=== PATIENT | male | born 1965 | race Caucasian/White ===

== ENCOUNTER → 2017-02-02 | Outpatient (CLI) | payer MEDICARE, OTHER ==
[~2017-02-02] MED LIST: ZESTRIL40 MG PO; ZOCOR 10MG10 MG PO
== END ==
LOC: COL.RAD 12:30
DX: M17.11 Unilateral primary osteoarthritis, right knee (principal); M23.221 Derangement of posterior horn of medial meniscus due to old tear or injury, right knee; M25.761 Osteophyte, right knee; M25.461 Effusion, right knee

== ENCOUNTER 2020-03-13 09:00 | Outpatient (RCR) | payer MEDICARE, OTHER | END 2020-06-11 | disposition home or self-care (01) | LOC: MKS.ESL.PT | DX: Z96.651 Presence of right artificial knee joint (principal) ==

== ENCOUNTER 2020-05-27 10:15 | Outpatient (RCR) | payer MEDICARE, OTHER | END 2020-08-12 | disposition home or self-care (01) | LOC: MKS.ESL.PT | DX: Z47.1 Aftercare following joint replacement surgery (principal); Z96.652 Presence of left artificial knee joint ==

== ENCOUNTER → 2020-08-24 | Outpatient (RCR) | payer MEDICARE, OTHER | END | disposition home or self-care (01) | LOC: MKS.ESL.PT | DX: Z96.652 Presence of left artificial knee joint (principal) ==

== ENCOUNTER 2020-11-23 09:30 | Outpatient (RCR) | payer MEDICARE, OTHER | END 2020-11-24 | disposition home or self-care (01) | LOC: MKS.ESL.PT | DX: Z01.818 Encounter for other preprocedural examination (principal) ==

== ENCOUNTER 2021-02-16 10:30 | Outpatient (RCR) | payer MEDICARE, OTHER | END 2021-02-23 | disposition home or self-care (01) | LOC: MKS.ESL.PT | DX: Z96.652 Presence of left artificial knee joint (principal) ==

== ENCOUNTER → 2021-02-25 11:16 | Outpatient (RCR) | payer MEDICARE, OTHER | END | disposition home or self-care (01) | LOC: MKS.ESL.PT 08-13 11:00 | DX: Z96.651 Presence of right artificial knee joint (principal) ==

== ENCOUNTER 2021-02-25 11:18 | Outpatient (RCR) | payer MEDICARE, OTHER | END 2021-02-25 11:19 | disposition home or self-care (01) | LOC: MKS.ESL.PT 11:18 | DX: Z96.651 Presence of right artificial knee joint (principal) ==

== ENCOUNTER 2021-03-11 11:00 | Outpatient (RCR) | payer SELFPAY | END 2021-03-14 | disposition home or self-care (01) | LOC: MKS.ESL.PT | DX: Z96.652 Presence of left artificial knee joint (principal) ==

== ENCOUNTER 2021-03-18 10:45 | Outpatient (RCR) | payer MEDICARE, OTHER | END 2021-05-26 | disposition home or self-care (01) | LOC: MKS.ESL.PT | DX: Z96.652 Presence of left artificial knee joint (principal) ==

== ENCOUNTER 2024-05-17 10:18 | Inpatient (IN) | payer MEDICARE, OTHER ==
[~2024-05-17] VITALS: Ht 167.6 cm; Wt 157.0 kg
[2024-05-17 13:00] VITALS: BP_SYST 107
[2024-05-17] MEDS ORDERED: TYLENOL 325MG325 MG PO (15:07)
[2024-05-17] MEDS ORDERED: ASPIRIN 32325 MG/TA1 PO (15:08)
[2024-05-17] MEDS ORDERED: EXCEDRIN1 TAB PO (15:09)
[2024-05-17] MEDS ORDERED: BANOPHEN MAXIMU1 CRE TOP (15:10)
[2024-05-17] MEDS ORDERED: VOLTAREN GEL 1%1 TU TP (15:10)
[2024-05-17] MEDS ORDERED: MIRALAX PA17 GM/Dose PO (15:11)
[2024-05-17] MEDS ORDERED: PROAIR RES117 MCG/Ac IH (15:13)
[2024-05-17] MEDS ORDERED: CYMBALTA 30MG30 MG PO (15:14)
[2024-05-17] MEDS ORDERED: NIGHT TIME SLEE25 MG PO (15:14)
[2024-05-17] MEDS ORDERED: NEURONTIN300 MG/CAP PO ×2 (15:16)
[2024-05-17] MEDS ORDERED: PRINIVIL40 MG PO (15:17)
[2024-05-17] MEDS ORDERED: GLUCOPHAGE XR750 MG PO (15:18)
[2024-05-17] MEDS ORDERED: CRESTOR20 MG PO (15:19)
[2024-05-17] MEDS ORDERED: EFFEXOR 75M75 MG/TAB PO (15:20)
[2024-05-17 15:26] VITALS: BP 107/72; PULSE 97; TEMP 98.1
[2024-05-17] MEDS ORDERED: Sennosides/Docusate 8.6-50 MG TAB PO PRN (15:30)
[2024-05-17] MEDS ORDERED: Polyethylene Glycol 3350 17 GM PDS PO PRN (15:30)
[2024-05-17] MEDS ORDERED: Acetaminophen 325 MG TAB PO PRN (15:30)
[2024-05-17] MEDS ORDERED: Docusate Sodium 100 MG CAP PO PRN (15:30)
[2024-05-17] MEDS ORDERED: Naloxone 0.4 MG/ML VIAL IV PRN (15:30)
[2024-05-17] MEDS ORDERED: Albuterol 0.083% Neb Soln 2.5 MG/3 ML UD IH PRN (15:45)
[2024-05-17] MEDS ORDERED: diphenhydrAMINE 50 MG CAP PO PRN (15:45)
[2024-05-17] MEDS ORDERED: Acetamin/Butalbital/Caffeine 325-50-40 MG TAB PO PRN (15:45)
[2024-05-17] MEDS ORDERED: diphenhydrAMINE 2%/Zinc Acetate 0.1% Cream 28.3 GM TUBE TP PRN (16:00)
[2024-05-17 16:57] VITALS: BP_SYST 107
--- NOTE | 2024-05-17 17:24 | NUR ---
HOSPITALIST CONSULT CALLED TO DR. SUAREZ.
[2024-05-17 18:25] VITALS: BP 130/78; PULSE 98; TEMP 98.4
[2024-05-17 19:00] VITALS: BP_SYST 130
--- NOTE | 2024-05-17 20:00 | NUR ---
PT AWAKE AND RESTING IN CHAIR. AMBULATED TO BED W/ SBA. SCHEDULED MEDS GIVEN PER eMAR. NOTED ABDOMINAL HERNIA, MIDLINE. PT DENIES PAIN OR DISCOMFORT. BED ALARM ON AND CALL LIGHT WITHIN REACH.
[2024-05-17] MEDS ORDERED: Atorvastatin 40 MG TAB PO SCH (21:00)
[2024-05-17] MEDS ORDERED: Rosuvastatin 20 MG **** subs to Atorvastatin 40 MG PO SCH (21:00)
[2024-05-17] MEDS ORDERED: Gabapentin 300 MG CAP PO SCH (21:00)
[2024-05-18 05:46] VITALS: BP 143/88; PULSE 68; TEMP 97.4
[2024-05-18 07:40] VITALS: BP_SYST 143
--- NOTE | 2024-05-18 07:45 | NUR ---
Patient called to be assisted to the restrom. Pt able to to stand up and use his cane to ambulate, assisted x 1. Alert and oriented, slow speech. States some pain in the right shoulder, lotion applied. Assessment completed, meds given. No further needs at this time. Call light within reach. Bed alarm on.
[2024-05-18] MEDS ORDERED: metFORMIN 850 MG TAB PO SCH (08:00)
[2024-05-18] MEDS ORDERED: DULoxetine 30 MG CAP PO SCH (09:00)
[2024-05-18] MEDS ORDERED: Aspirin Buffered 325 MG TAB PO SCH (09:00)
[2024-05-18] MEDS ORDERED: Gabapentin 300 MG CAP PO SCH (09:00)
--- NOTE | 2024-05-18 11:27 | NUR ---
Data: Patient accepted spiritual care visit offered during Thread Pulling Machine Attendant rounds. Patient is a . Patient is undergoing stroke IPR. Assessment: Patient has some difficulty with his words, but still needed to tell his story and feel heard. Plan of Care: Thread Pulling Machine Attendant provided supportive listening; affirmation of Patient's feelings; and a blessing. Thread Pulling Machine Attendant is also a Dawn which made some words of communication easier for him. Patient expressed his gratitude for the visit. Chaplains will remain available as needed/requested while Patient is admitted to this hospital.
--- NOTE | 2024-05-18 14:03 | NUR ---
CAKE WASHER met along with Brittany, met with pt and spouse Porsha bedside to complete initial consult and discuss discharge planning. Pt confirmed no DPOA and NOK decision maker is Porsha [phone]. Pt does not want to fill out DPAO paperowrk and is okay with making decision. Pt confirmed Srinath as PCP and they use [email or web address] or [facility] for pharmacy. Pt reports he has had about 4 falls over the last 3 months. None of them have resulted in injuries. Pt stated that most of the falls have occured when he is getting out of bed. Sometimes he walks too fast and will fall as well. He stated it "just happens". Pt uses a walking stick and a motorized wheelchair. He does not have grab bars in the shower and does not have a bench. Pt would like to have the bathroom remodeled since it is not disability friendly but they were quoted around $20k for the remodel and that is not something they can afford. Pt and were looking at "kit". CAKE WASHER educated pt and Porsha that kits are the most cost effective but there are different sizes of chairs which could potentially work if they looked outside of a kit. Family would follow up with different sizes of chairs that may not have been included in the kit. Pt stated that when he had knee surgery prior he used [facility] . Porsha is on board with HH but pt is not at thsi time. He would like to wait until closer to discharge to determine if he needs HH or not. Family said house is fine structurally, they just need a more accessible shower\\bathing situation. D/C: Home
[2024-05-18 17:05] VITALS: BP 145/65; PULSE 77; TEMP 98.4
[2024-05-18 18:53] VITALS: BP_SYST 145
--- NOTE | 2024-05-18 20:00 | NUR ---
PT AWAKE AND RESTING IN BED. SCHEDULED MEDS GIVEN PER eMAR. ABDOMINAL HERNIA VISIBLY PROTRUDING, MIDLINE. SMALL NODULE AND BRUISE ON LEFT SIDE OF ABDOMEN. BANDAGE AND STERI STRIPS COVERING LOOP RECORDER INCISION SITE. PRN TYLENOL GIVEN FOR RIGHT SHOULDER PAIN. PT AMBULATED TO TOILET X1 ASSIST W/ WALKER. NO FURTHER CONCERNS. BED IN LOWEST POSITION AND CALL LIGHT WITHIN REACH.
--- NOTE | 2024-05-19 02:30 | NUR ---
PT C/O PAIN IN RIGHT SHOULDER. PRN TYELNOL OFFERED AND GIVEN.
[2024-05-19 06:00] VITALS: BP 131/51; PULSE 66; TEMP 97.4
[2024-05-19 07:00] VITALS: BP_SYST 131
--- NOTE | 2024-05-19 08:40 | NUR ---
PATIENT SITTING IN RECLINER. ON ROOM AIR, REPORTS PAIN 4/10 TO RIGHT SHOULDER, MORNING MEDICATIONS GIVEN. PATIENT BREAKFAST WAS ORDERED. PATIENT DENIED ANY OTHER NEED AT THIS TIME. CALL LIGHT WITHIN REACH.
[2024-05-19 17:44] VITALS: BP 111/67; PULSE 82; TEMP 98.6
[2024-05-19 19:27] VITALS: BP_SYST 111
--- NOTE | 2024-05-19 22:30 | NUR ---
PT SITTING IN CHAIR. PT AMBULATED TO BED. NO COMPLAINTS AT THIS TIME. CALL LIGHT IS WITHIN REACH. PT IS A/OX4. DENIES ANY N/V AT THIS TIME. BED IS IN LOWEST POSITION WITH BED ALARM ON. ASSESSMENT COMPLETED EARLIER. MEDICATIONS ADMINISTERED PER EMAR.
[2024-05-20 05:48] VITALS: BP 111/66; PULSE 82; TEMP 97.4
[2024-05-20 07:00] VITALS: BP_SYST 111
--- NOTE | 2024-05-20 08:51 | NUR ---
PT UP TO RECLINER FOR BREAKFAST WITH SBAX1. PT DENIES PAIN OR NEEDS AT THIS TIME. AM MEDS GIVEN ORDERED. VSS. PT WORKING WITH THERAPY PER CARE PLAN.
--- NOTE | 2024-05-20 15:10 | NUR ---
Plunger Scoop Operator met with patient and his , Porsha to introduce herself and explain role on the rehab unit. MISHA also scheduled a family meeting for Monday at 1015. Patient and inquired about VA assistance with home renovations to make his bathroom more accessible. Patient goes to the [facility] for primary care so MISHA attempted to contact [facility] and left a message.
[2024-05-20 18:07] VITALS: BP 132/79; PULSE 75; TEMP 97.4
[2024-05-20 20:00] VITALS: BP_SYST 132
--- NOTE | 2024-05-21 00:45 | NUR ---
PATIENT RESTING SOUNDLY WITH CPAP IN PLACE. LAYING ON LT LATERAL SIDE, NO SIGNS OF DISTRESS.
[2024-05-21 06:00] VITALS: BP 133/70; PULSE 72; TEMP 97.4
[2024-05-21 07:00] VITALS: BP_SYST 133
--- NOTE | 2024-05-21 08:00 | NUR ---
PT A&OX4. WOKE PT UP TO EAT BREAKFAST AND GET READY BEFORE THERAPY. SITTING ON EDGE OF BED EATING BREAKFAST CURRENTLY. PT'S CPAP TAKEN OFF AND SHUT DOWN. VSS. SHIFT ASSESSMENT COMPLETE AND MEDICATIONS ADMINISTERED. PT IS UP WITH ASSIST X1, WALKER, AND GB. PT USES W/C FOR LONG DISTANCES. PT HAS NO C/O PAIN AT THIS TIME. NO FURTHER NEEDS AT THIS TIME. CALL LIGHT AND PERSONAL BELONGINGS WITHIN REACH.
--- NOTE | 2024-05-21 15:47 | NUR ---
Outdoor Adventure Instructor attempted to contact MISHA HUFF at the [facility] and left a message.
--- NOTE | 2024-05-21 15:52 | NUR ---
Account Consultant was contacted by MISHA Melendrez at the [facility] who advised she would contact patient's , Porsha tomorrow to discuss grants through the [facility] for home renovations.
[2024-05-21 17:55] VITALS: BP 142/84; PULSE 88; TEMP 97.8
[2024-05-21 18:45] VITALS: BP_SYST 142
--- NOTE | 2024-05-21 19:20 | NUR ---
Patient sitting on edge of bed. Assissted patient to bathroom and back to bed. Rates his pian at 5/10, prn tylenol given. Needs met. Assessment complete. Call light and personal items in reach. Bed in low position and bed alarm on.
[2024-05-22 05:25] VITALS: BP 107/60; PULSE 69; TEMP 97.7
[2024-05-22 07:00] VITALS: BP_SYST 107
--- NOTE | 2024-05-22 08:15 | NUR ---
Pt a&ox4. C/o slight aching pains in both shoulders. Voltaren gel applied. VSS. Up with SBA, walker, and gait belt. Shift assessment complete and medications administered. Pt currently in bed waiting for therapy. No further needs at this time. Call light within reach.
--- NOTE | 2024-05-22 14:26 | NUR ---
The Interdisciplinary team discussed making the patient Independent in his room during special Team Huddle. His current West Fall Score is low at 15 but his Tinetti score is moderate at 22. He is currently is using a walker for mobility or self care & demonstrates good safety. The team feels he is capable of being Modified Independent in his room at this time as he is aware of his deficits/limitations & cognitively able to problem solve his situations.--Farnaz Hoffman, PD
[2024-05-22 16:25] VITALS: BP 130/86; PULSE 87; TEMP 98.1
--- NOTE | 2024-05-22 16:38 | NUR ---
Hair Spring Cutter participated in patient's family meeting which included patient's , Porsha at bedside. AASHISH Osei Director opened the meeting followed by a medical update from Dr. Izquierdo. PT/OT/ST gave report on patient's progress and recommendations. SW discussed discharge date of Monday and patient is agreeable to this. Therapy is recommending a bariatric walker, which SW will order. SW also discussed Home Health services which patient and are agreeable to. After meeting, SW followed up to provide copy of team conference notes and Medicare.gov list of agencies to review and choose from. MISHA also contacted [facility] and confirmed they have bariatric walkers available.
[2024-05-22 18:50] VITALS: BP_SYST 130
--- NOTE | 2024-05-22 21:15 | NUR ---
Patient sitting in chair. Rates pain at 6/10, prn pain meds given. Needs met. Assessment complete. Call light and personal items in reach. Bed in low position.
[2024-05-23 06:00] VITALS: BP 105/57; PULSE 70; TEMP 97.6
[2024-05-23 07:05] VITALS: BP_SYST 105
[2024-05-23 07:08] LABS: HEMATOCRIT 37.6 % (42.0-52.0); HEMOGLOBIN 12.3 g/dl (13.5-18.0); MEAN CELL VOLUME 93 fl (80.0-100.0); MEAN CORPUSCULAR HEMOGLOBIN 31 pg (27-31); MEAN CORPUSCULAR HGB CONC 33 g/dl (33.0-37.0); PLATELET COUNT 506 K/mm3 (130-400); RED BLOOD COUNT 4.03 M/mm3 (4.20-5.60)
[2024-05-23 07:27] LABS: CREATININE, serum 0.81 mg/dL (0.72-1.25); POTASSIUM 4.3 mEq/L (3.5-4.5)
[2024-05-23 08:01] LABS: EOSINOPHIL 5 % (0-4); LYMPHOCYTE 25 % (20.0-51.0); NEUTROPHILS 62 % (42.0-75.2)
[2024-05-23 08:02] LABS: PLATELET ESTIMATE INCREASED (NORMAL)
--- NOTE | 2024-05-23 09:21 | NUR ---
PT UP TO SOB FOR BREAKFAST. AM MEDS GIVEN ORDERED. CAREPLAN REVIEWED PT VERBALIZED UNDERSTANDING. DR. STEELE IN TO ROUND ON PT THIS AM. PT REQUESTING MIRALAX. PRN GIVEN.
--- NOTE | 2024-05-23 16:22 | NUR ---
PT OBTAINED PT WT OF 157 KG THIS AM.
--- NOTE | 2024-05-23 16:34 | NUR ---
Evaporator Helper met with patient to present and review IM form. Patient verbalized understanding and provided signature. SW placed form in chart and provided copy to patient. MISHA discussed the Medicare.gov list of HH agencies and patient selected [facility]. If [facility] cannot accept, [facility] is his second preference. MISHA faxed referral and order for bariatric walker to [facility]. Initially patient's weight did not qualify for a bariatric walker, but MISHA collaborated with RN to get updated weight, which was provided to [facility]. MISHA faxed referral to [facility].
[2024-05-23 17:00] VITALS: BP 116/74; PULSE 74; TEMP 98.2
[2024-05-23 19:18] VITALS: BP_SYST 116
--- NOTE | 2024-05-24 00:41 | NUR ---
WAS AT BEDSIDE EARLIER THIS PM. ASSESSMENT COMPLETED EARLIER. MEDICATIONS ADMNISTERED PER EMAR. NO COMPLAINTS AT THIS TIME. CALL LIGHT IS WITHIN REACH. PT DENIES N/V, SOB. A/OX4
[2024-05-24 06:10] VITALS: BP 116/67; PULSE 79; TEMP 97.8
--- NOTE | 2024-05-24 06:50 | NUR ---
appears to be sleeping with CPAP on, bedside shift report received from DAKOTA Zheng,
[2024-05-24 07:03] VITALS: BP_SYST 116
--- NOTE | 2024-05-24 08:50 | NUR ---
Dr Henderson in to see patient
[2024-05-24] MEDS ORDERED: ASPIRIN 32325 MG/TA1 PO (08:51)
[2024-05-24] MEDS ORDERED: VOLTAREN GEL 1%1 TU TP (08:51)
[2024-05-24] MEDS ORDERED: CYMBALTA 30MG30 MG PO (08:53)
[2024-05-24] MEDS ORDERED: EFFEXOR 75M75 MG/TAB PO (08:53)
[2024-05-24] MEDS ORDERED: NORCO 325 MG-51 TAB PO (08:54)
--- NOTE | 2024-05-24 10:00 | NUR ---
full assessment completed, see interventions for further info, denies BM for 2 days given miralax 1 packet
--- NOTE | 2024-05-24 10:55 | NUR ---
appears to be sleeping, in bed with eyes closed, resp quiet and easy
--- NOTE | 2024-05-24 13:15 | NUR ---
discharge instructions given to patient and his , verbalizes understanding
--- NOTE | 2024-05-24 13:30 | NUR ---
discharged per his electric WC
--- NOTE | 2024-05-24 15:24 | NUR ---
Media Monitor confirmed patient's bariatric walker was delivered to his room. SW also contacted [facility] and they are able to accept referral. MISHA faxed discharge orders and confirmed with Rebekah at [facility] that they were received.
--- NOTE | 2024-05-28 07:29 | NUR ---
Discharge QIM scores were reviewed by the team. Code of 6 chosen for walking 150 feet was determined by team discussion to be the most usual performance for this patient during the discharge assessment period.--Farnaz Hoffman, PD
== END 2024-05-24 13:30 | disposition home health service (06) | DRG 57 ==
PROVIDERS: ADMIT Physical Medicine & Rehabilitation Sports Medicine
DX: I69.351 Hemiplegia and hemiparesis following cerebral infarction affecting right dominant side (principal); Z68.43 Body mass index [BMI] 50.0-59.9, adult; G99.2 Myelopathy in diseases classified elsewhere; I69.320 Aphasia following cerebral infarction; R26.89 Other abnormalities of gait and mobility; G62.9 Polyneuropathy, unspecified; J44.89 Other specified chronic obstructive pulmonary disease; R53.81 Other malaise; M48.02 Spinal stenosis, cervical region; G47.33 Obstructive sleep apnea (adult) (pediatric); E78.5 Hyperlipidemia, unspecified; R91.8 Other nonspecific abnormal finding of lung field; I10 Essential (primary) hypertension; D72.829 Elevated white blood cell count, unspecified; F43.12 Post-traumatic stress disorder, chronic; D75.839 Thrombocytosis, unspecified; F32.A Depression, unspecified; M48.04 Spinal stenosis, thoracic region; Z95.818 Presence of other cardiac implants and grafts; Z79.82 Long term (current) use of aspirin; Z79.52 Long term (current) use of systemic steroids; Z87.891 Personal history of nicotine dependence; Z79.899 Other long term (current) drug therapy; Z79.84 Long term (current) use of oral hypoglycemic drugs; Z91.81 History of falling; Z74.09 Other reduced mobility; Z98.1 Arthrodesis status; E66.01 Morbid (severe) obesity due to excess calories
CPT/HCPCS: A9284; J1650